=== PATIENT | male | born 2005 | race Caucasian/White ===

== ENCOUNTER 2025-05-12 15:40 | Emergency (ER) | payer SELFPAY ==
[2025-05-12 15:43] VITALS: BP 120/54
[2025-05-12] MEDS: TYLENOL 1000 MG PO (17:14)
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
[2025-05-12 19:33] VITALS: BP 115/62
== END 2025-05-12 19:38 | disposition home or self-care (01) ==
LOC: EMR 15:40
PROVIDERS: EMERGENCY PHYSICIAN Student in an Organized Health Care Education/Training Program
DX: S02.31XA Fracture of orbital floor, right side, initial encounter for closed fracture (principal); S00.83XA Contusion of other part of head, initial encounter; Y04.0XXA Assault by unarmed brawl or fight, initial encounter
CPT/HCPCS: 99284; 70450; 70486